=== PATIENT | female | born 1955 | race Two or more races ===

== ENCOUNTER 2024-03-27 10:06 | Inpatient (IN) | payer BC, MEDICARE ==
[~2024-03-27 10:06] MED LIST: Iopamidol-370 76% 500 ML MDV (1 ML CHARGE) ONE
[2024-03-27] MEDS ORDERED: Ondansetron PF 4 MG/2 ML Vial ONE (13:09)
[2024-03-27] MEDS ORDERED: Morphine 4 MG/ML VIAL ONE (13:09)
[2024-03-27 13:22] LABS: #Basophils 0.05 10x3/uL (0.0-0.2); #Eosinphils Less than 0.03 10x3/uL (0.0-0.7); %Basophils 0.2 % (0.0-1.0); %Lymphocytes 4.8 % (21.0-51.0); %Monocytes 7.6 % (0.0-10.0); %Neutrophils 86.5 % (42.0-75.0); Hematocrit 31.8 % (36.0-47.0); Hemoglobin 10.9 g/dL (12.0-16.0); Mean Corpuscular HGB CONC 34.3 g/dL (32.0-36.0); Mean Corpuscular Hemoglobin 33.1 pg (27.0-31.0); Mean Corpuscular Volume 96.7 fL (78.0-98.0); Mean Platelet Volume 9.5 fL (7.4-10.4); Platelet Count 441 10x3/uL (130-400); RBC Distribution Width 13.9 % (11.5-14.5); Red Blood Cell (RBC) Count 3.29 mill/uL (4.20-5.40)
[2024-03-27 13:46] LABS: Troponin I 0.094 ng/mL (< 0.028)
[2024-03-27] MEDS ORDERED: Vancomycin 1 GM/200 ML (FROZEN) BAG ONE (14:07)
[2024-03-27] MEDS ORDERED: Cefepime 2 GM VIAL ONE (14:40)
[2024-03-27] MEDS ORDERED: Sodium Chloride 0.9% 100 ML ONE (14:42)
[2024-03-27 15:19] LABS: Globulin 4.1 g/dL (2.4-3.5)
[2024-03-27 15:24] LABS: ALT (SGPT) 14 U/L (8-55); AST (SGOT) 20 U/L (5-34); Albumin 4.6 g/dL (3.4-4.8); Alkaline Phosphatase 92 U/L (40-110); Anion Gap 20 mmol/L (10-20); BUN (Urea Nitrogen) 24 mg/dL (9.8-20.1); Bilirubin, Total 1.1 mg/dL (0.2-1.2); Calc. Creatinine Clearance 0 mL/min (70-130); Calcium 10.4 mg/dL (7.8-10.44); Carbon Dioxide 19 mmol/L (23-31); Chloride 99 mmol/L (98-107); Estimated GFR 58; Glucose 239 mg/dL (80-115); Lipase 10 U/L (8-78); Potassium 3.9 mmol/L (3.5-5.1); Protein, Total 8.7 g/dL (5.8-8.1); Sodium 134 mmol/L (136-145)
[2024-03-27 17:50] LABS: Troponin I 0.138 ng/mL (< 0.028)
[2024-03-27 18:11] LABS: Hemoglobin A1c 6.6 % (4.0-6.0)
[2024-03-27 18:33] LABS: Lactic Acid 4.1 mmol/L (0.5-2.2)
[2024-03-27 20:24] VITALS: BMI 23.9
[2024-03-27 20:57] LABS: Bilirubin Negative (Negative); Blood, Urine 3+ (Negative); CAUTI Indications for Culture Pelvic or flank pain; Glucose, Urine (Dipstick) Normal (Negative); Ketone, Urine Trace mg/dL (Negative); Leukocyte 25 Leu/uL (Negative); Nitrite Negative (Negative); Protein, Urine (Dipstick) 300 mg/dL (Neg-Trace); RBC/HPF Greater than 50 HPF (0-3); Specific Gravity, Urine 1.036 (1.002-1.036); Squamous Epithelial None Seen HPF (0-3); Urobilinogen Normal mg/dL (Less than 2); pH, Urine 6.5 (5.0-9.0)
[2024-03-27 21:02] LABS: Bacteria/HPF 4+ HPF (None Seen); Clarity Turbid (Clear)
[2024-03-27 21:04] LABS: Urine Culture Reflex Yes Yes
[2024-03-27] MEDS: Lactated Ringer's 1,000 ML IV SCH (21:32)
[2024-03-27] MEDS: Polyethylene Glycol 3350 17 GM Packet PO SCH (21:32)
[2024-03-27] MEDS: Vancomycin HCl 500 MG in Sodium Chloride 0.9% 100 ML IVPB SCH (21:33)
[2024-03-27] MEDS: Morphine 4 MG/ML VIAL SLOW IVP PRN (21:33)
[2024-03-27] MEDS ORDERED: cefTRIAXone\\ROCEPHIN 1 GM in Sodium Chloride 0.9% 100 ML IVPB SCH (23:00)
[2024-03-28 01:35] LABS: Lactic Acid 1.9 mmol/L (0.5-2.2)
[2024-03-28 01:45] LABS: Critical Call Chem Troponin I NUR.TNL@0145; Troponin I 0.201 ng/mL (< 0.028)
[2024-03-28] MEDS: Cefepime 1 GM in Sodium Chloride 0.9% 100 ML IVPB SCH (02:33)
[2024-03-28] MEDS: Lactated Ringer's 1,000 ML IV SCH ×2 (02:33→05:53)
[2024-03-28 04:22] LABS: #Basophils 0.05 10x3/uL (0.0-0.2); #Eosinphils Less than 0.03 10x3/uL (0.0-0.7); %Basophils 0.3 % (0.0-1.0); %Eosinophils 0.1 % (0.0-10.0); %Lymphocytes 9.6 % (21.0-51.0); %Monocytes 10.4 % (0.0-10.0); Hematocrit 30.4 % (36.0-47.0); Hemoglobin 10.2 g/dL (12.0-16.0); Mean Corpuscular HGB CONC 33.6 g/dL (32.0-36.0); Mean Corpuscular Hemoglobin 32.4 pg (27.0-31.0); Mean Corpuscular Volume 96.5 fL (78.0-98.0); Mean Platelet Volume 9.6 fL (7.4-10.4); Platelet Count 402 10x3/uL (130-400); RBC Distribution Width 14.2 % (11.5-14.5); Red Blood Cell (RBC) Count 3.15 mill/uL (4.20-5.40)
[2024-03-28 04:50] LABS: Vancomycin, Random 21.1 ug/mL (See Comment)
[2024-03-28 05:09] LABS: Anion Gap 17 mmol/L (10-20); BUN (Urea Nitrogen) 28 mg/dL (9.8-20.1); Calc. Creatinine Clearance 42 mL/min (70-130); Calcium 8.9 mg/dL (7.8-10.44); Carbon Dioxide 17 mmol/L (23-31); Chloride 105 mmol/L (98-107); Estimated GFR 51; Glucose 150 mg/dL (80-115); Potassium 4.1 mmol/L (3.5-5.1); Sodium 135 mmol/L (136-145)
[2024-03-28 07:39] VITALS: BMI 23.9
[2024-03-28] MEDS ORDERED: Dextrose 50% Abboject 50 ML SYRINGE SLOW IVP PRN (08:52)
[2024-03-28] MEDS ORDERED: Glucagon 1 MG/ML KIT IM PRN (08:52)
[2024-03-28] MEDS ORDERED: Dextrose 5% in Water 1,000 ML IV PRN (08:52)
[2024-03-28 09:27] LABS: Troponin I 0.199 ng/mL (< 0.028)
[2024-03-28] MEDS: Polyethylene Glycol 3350 17 GM Packet PO SCH (09:52)
[2024-03-28] MEDS: Acetaminophen 325 MG TAB PO PRN (09:52)
[2024-03-28] MEDS: Enoxaparin 40 MG (0.4 mL) SYRINGE SC SCH (09:52)
[2024-03-28] MEDS ORDERED: Insulin Regular 300 UNITS/3 ML VIAL SC PRN (10:07)
[2024-03-28] MEDS ORDERED: Vancomycin (BATCH) 1.25 GM in Premix 1 BAG IVPB SCH ×3 (16:00→21:00)
[2024-03-28] MEDS: Morphine 2 MG/ML VIAL SLOW IVP PRN (18:43)
[2024-03-28] MEDS: Gabapentin 100 MG CAP PO SCH (20:32)
[2024-03-28] MEDS: Vancomycin HCl 750 MG in Sodium Chloride 0.9% 250 ML 250 ML IVPB SCH (20:33)
[2024-03-29] MEDS: Ondansetron ODT 4 MG TAB PO PRN (02:23)
[2024-03-29 04:55] LABS: #Basophils 0.08 10x3/uL (0.0-0.2); %Basophils 0.5 % (0.0-1.0); %Eosinophils 1.6 % (0.0-10.0); %Lymphocytes 11.5 % (21.0-51.0); %Monocytes 8.6 % (0.0-10.0); %Neutrophils 77.2 % (42.0-75.0); Hematocrit 27.2 % (36.0-47.0); Hemoglobin 9.3 g/dL (12.0-16.0); Mean Corpuscular HGB CONC 34.2 g/dL (32.0-36.0); Mean Corpuscular Hemoglobin 33.1 pg (27.0-31.0); Mean Corpuscular Volume 96.8 fL (78.0-98.0); Mean Platelet Volume 10.2 fL (7.4-10.4); Platelet Count 378 10x3/uL (130-400); RBC Distribution Width 14.3 % (11.5-14.5); Red Blood Cell (RBC) Count 2.81 mill/uL (4.20-5.40)
[2024-03-29 05:07] LABS: Troponin I 0.147 ng/mL (< 0.028)
[2024-03-29 05:11] LABS: Vancomycin, Random 20.8 ug/mL (See Comment)
[2024-03-29 05:13] LABS: Anion Gap 15 mmol/L (10-20); BUN (Urea Nitrogen) 31 mg/dL (9.8-20.1); Calc. Creatinine Clearance 41 mL/min (70-130); Carbon Dioxide 19 mmol/L (23-31); Chloride 107 mmol/L (98-107); Estimated GFR 50; Glucose 158 mg/dL (80-115); Potassium 4.3 mmol/L (3.5-5.1); Sodium 137 mmol/L (136-145)
[2024-03-29] MEDS: Levothyroxine Sodium 75 MCG TAB PO SCH (05:35)
[2024-03-29] MEDS: Pantoprazole DR 40 MG TAB PO SCH (10:11)
[2024-03-29] MEDS: DULoxetine 30 MG CAP PO SCH (10:12)
[2024-03-30] MEDS: Senokot S 8.6-50 MG TAB PO PRN (02:40)
[2024-03-30 04:29] LABS: #Basophils 0.05 10x3/uL (0.0-0.2); %Basophils 0.5 % (0.0-1.0); %Eosinophils 3.8 % (0.0-10.0); %Monocytes 9.8 % (0.0-10.0); %Neutrophils 68.4 % (42.0-75.0); Hematocrit 23.1 % (36.0-47.0); Hemoglobin 7.7 g/dL (12.0-16.0); Mean Corpuscular HGB CONC 33.3 g/dL (32.0-36.0); Mean Corpuscular Hemoglobin 32.8 pg (27.0-31.0); Mean Corpuscular Volume 98.3 fL (78.0-98.0); Mean Platelet Volume 9.6 fL (7.4-10.4); Platelet Count 343 10x3/uL (130-400); RBC Distribution Width 14.4 % (11.5-14.5); Red Blood Cell (RBC) Count 2.35 mill/uL (4.20-5.40)
[2024-03-30 05:00] LABS: Anion Gap 12 mmol/L (10-20); BUN (Urea Nitrogen) 20 mg/dL (9.8-20.1); Calc. Creatinine Clearance 56 mL/min (70-130); Calcium 8.6 mg/dL (7.8-10.44); Carbon Dioxide 20 mmol/L (23-31); Chloride 108 mmol/L (98-107); Estimated GFR 73; Glucose 150 mg/dL (80-115); Sodium 136 mmol/L (136-145)
[2024-03-30] MEDS: Vancomycin 1 GM in Premix 1 BAG IVPB SCH (20:22)
[2024-03-30 21:11] LABS: Hematocrit 29.2 % (36.0-47.0); Hemoglobin 9.8 g/dL (12.0-16.0)
[2024-03-31 04:21] LABS: Hematocrit 29.9 % (36.0-47.0); Hemoglobin 10.1 g/dL (12.0-16.0); Mean Corpuscular HGB CONC 33.8 g/dL (32.0-36.0); Mean Corpuscular Hemoglobin 31.9 pg (27.0-31.0); Mean Corpuscular Volume 94.3 fL (78.0-98.0); Red Blood Cell (RBC) Count 3.17 mill/uL (4.20-5.40)
[2024-03-31 04:22] LABS: #Basophils 0.06 10x3/uL (0.0-0.2); %Basophils 0.5 % (0.0-1.0); %Eosinophils 2.8 % (0.0-10.0); %Lymphocytes 19.3 % (21.0-51.0); %Neutrophils 68.6 % (42.0-75.0); Mean Platelet Volume 9.4 fL (7.4-10.4); Platelet Count 368 10x3/uL (130-400); RBC Distribution Width 17.2 % (11.5-14.5)
[2024-03-31 04:37] LABS: Vancomycin, Random 20.4 ug/mL (See Comment)
[2024-03-31 04:39] LABS: Anion Gap 12 mmol/L (10-20); BUN (Urea Nitrogen) 16 mg/dL (9.8-20.1); Calc. Creatinine Clearance 58 mL/min (70-130); Calcium 9.2 mg/dL (7.8-10.44); Carbon Dioxide 23 mmol/L (23-31); Chloride 105 mmol/L (98-107); Estimated GFR 76; Glucose 137 mg/dL (80-115); Potassium 4.2 mmol/L (3.5-5.1); Sodium 136 mmol/L (136-145)
[2024-03-31] MEDS: Insulin Regular 300 UNITS/3 ML VIAL SC PRN (06:32)
[2024-03-31 06:40] LABS: Hematocrit 27.6 % (36.0-47.0); Hemoglobin 9.4 g/dL (12.0-16.0); Platelet Count 348 10x3/uL (130-400)
[2024-03-31] MEDS: Amoxicillin/Potassium Clav 875 MG TAB PO SCH (09:55)
[2024-03-31] MEDS: Polyethylene Glycol 3350 17 GM Packet PO SCH (14:30)
[2024-03-31] MEDS: Ketorolac Tromethamine 30 MG (1 mL) VIAL IVP SCH (14:30)
[2024-03-31] MEDS: Naloxegol 12.5 MG TAB PO SCH (16:47)
[2024-03-31] MEDS: Magnesium Citrate 300 ML BOT PO SCH (16:47)
[2024-03-31] MEDS: metFORMIN 500 MG TAB PO SCH (16:47)
[2024-04-01] MEDS: Ketorolac Tromethamine 30 MG (1 mL) VIAL IVP SCH (00:06)
[2024-04-01 04:28] LABS: #Basophils 0.07 10x3/uL (0.0-0.2); %Basophils 0.5 % (0.0-1.0); %Eosinophils 3.9 % (0.0-10.0); %Monocytes 8.8 % (0.0-10.0); %Neutrophils 67.8 % (42.0-75.0); Hematocrit 30.1 % (36.0-47.0); Hemoglobin 10.3 g/dL (12.0-16.0); Mean Corpuscular HGB CONC 34.2 g/dL (32.0-36.0); Mean Corpuscular Hemoglobin 31.3 pg (27.0-31.0); Mean Corpuscular Volume 91.5 fL (78.0-98.0); Mean Platelet Volume 9.4 fL (7.4-10.4); Platelet Count 377 10x3/uL (130-400); RBC Distribution Width 16.3 % (11.5-14.5); Red Blood Cell (RBC) Count 3.29 mill/uL (4.20-5.40)
[2024-04-01 04:57] LABS: Anion Gap 12 mmol/L (10-20); BUN (Urea Nitrogen) 21 mg/dL (9.8-20.1); Calc. Creatinine Clearance 54 mL/min (70-130); Calcium 8.9 mg/dL (7.8-10.44); Carbon Dioxide 23 mmol/L (23-31); Chloride 106 mmol/L (98-107); Estimated GFR 69; Glucose 138 mg/dL (80-115); Iron 34 ug/dL (50-170); Iron Binding Capacity, Total 328 mcg/dL (265-497); Potassium 4.5 mmol/L (3.5-5.1); Sodium 136 mmol/L (136-145); Transferrin, Serum 262 mg/dL (173-360)
[2024-04-01 05:04] LABS: Iron 34 ug/dL (50-170); Iron Binding Capacity, Total 326 mcg/dL (265-497)
[2024-04-01 05:21] LABS: Ferritin 59.13 ng/mL (10-291)
[2024-04-01] MEDS: Naloxegol 12.5 MG TAB PO SCH (09:06)
[2024-04-01 17:52] VITALS: BP 146/69; TEMP 97.9
== END 2024-04-01 18:33 | disposition home or self-care (01) | DRG 871 ==
LOC: ERS 10:06 → 2NO 17:01 → OBSVTOIN 17:01
PROVIDERS: ADMIT Family Medicine; ATTEND Family Medicine
PROC: 3E03329 Introduction of Other Anti-infective into Peripheral Vein, Percutaneous Approach (ICD-10-PCS; 2024-03-27)
PROC: 30233N1 Transfusion of Nonautologous Red Blood Cells into Peripheral Vein, Percutaneous Approach (ICD-10-PCS; principal; 2024-03-30)
DX: A41.4 Sepsis due to anaerobes (principal); I21.A1 Myocardial infarction type 2; A41.81 Sepsis due to Enterococcus; Z66 Do not resuscitate; I25.10 Atherosclerotic heart disease of native coronary artery without angina pectoris; I25.2 Old myocardial infarction; N30.80 Other cystitis without hematuria; D64.9 Anemia, unspecified; K59.00 Constipation, unspecified; E11.9 Type 2 diabetes mellitus without complications; Z95.1 Presence of aortocoronary bypass graft; Z90.49 Acquired absence of other specified parts of digestive tract; Z88.2 Allergy status to sulfonamides
CPT/HCPCS: 36415; 36416; 36430; 71045; 74177; 80048; 80053; 80202; 81001; 82607; 82728; 83010; 83036; 83540; 83550; 83605; 83690; 84466; 84484; 85025; 85046; 86850; 86900; 86901; 87040; 87077; 87086; 87186; 93005; 96361; 96365; 96367; 96375; J0692; J1650; J1815; J1885; J2270; J2272; J2405; J3370; J3370-JW; J3490; J7050; J7120; P9016; Q0162; Q9967